=== PATIENT | female | born 1965 | race Caucasian/White ===

== ENCOUNTER 2017-12-11 15:05 | Emergency (ER) | payer OTHER ==
[~2017-12-11] VITALS: Ht 177.8 cm; Wt 83.9 kg
[~2017-12-11 15:05] MED LIST: AMOXICILLIN500 MG PO; DARVOCET N 1001 TAB PO; DAYPRO600 M1 PO; DIFLUCAN150 MG PO; ROBAXIN750 MG PO; ZOVIRAX800 MG PO
== END 2017-12-11 16:49 | disposition home or self-care (01) ==
LOC: ED 15:05
DX: S93.692A Other sprain of left foot, initial encounter (principal); F17.200 Nicotine dependence, unspecified, uncomplicated; Z98.890 Other specified postprocedural states; X50.1XXA Overexertion from prolonged static or awkward postures, initial encounter; Y93.01 Activity, walking, marching and hiking; Y92.828 Other wilderness area as the place of occurrence of the external cause; Y99.9 Unspecified external cause status

== ENCOUNTER → 2024-01-07 | Outpatient (CLI) | payer OTHER | END | disposition home or self-care (01) | LOC: MAMMO 12:20 | PROVIDERS: ATTEND Nurse Practitioner | DX: R92.1 Mammographic calcification found on diagnostic imaging of breast (principal) ==

== ENCOUNTER 2024-01-10 17:22 | Emergency (ER) | payer OTHER ==
[~2024-01-10] VITALS: Ht 180.3 cm; Wt 74.8 kg
[2024-01-10] MEDS ORDERED: NAPROXEN500 MG PO (17:34)
[2024-01-10] MEDS ORDERED: BUSPAR5 MG PO (17:34)
[2024-01-10] MEDS ORDERED: METHOCARBAMOL750 M1 PO (17:34)
[2024-01-10] MEDS ORDERED: ROSUVASTATIN CA20 MG PO (17:35)
[2024-01-10] MEDS ORDERED: FLUOXETINE HCL40 MG PO (17:35)
[2024-01-10] MEDS ORDERED: VITAMIN D350 MCG PO (17:35)
[2024-01-10] MEDS ORDERED: Acetaminophen/Oxycodone 5 MG/325 MG TABLET PO ONE (17:45)
[2024-01-10] MEDS ORDERED: Amoxicillin/Clavulanate Pota 875 MG TAB PO ONE (17:45)
[2024-01-10] MEDS ORDERED: HYDROCODONE-AC1 EAC1 PO (17:49)
[2024-01-10] MEDS ORDERED: AMOX-CLAV 875-1 EACH PO (17:49)
[2024-01-10] MEDS ORDERED: Tdap Vaccine 0.5 ML SYR (Adult Vaccine) IM ONE (18:00)
== END 2024-01-10 18:08 | disposition home or self-care (01) ==
LOC: ED 17:22
DX: S31.813A Puncture wound without foreign body of right buttock, initial encounter (principal); S51.851A Open bite of right forearm, initial encounter; S50.11XA Contusion of right forearm, initial encounter; Z90.49 Acquired absence of other specified parts of digestive tract; Z98.890 Other specified postprocedural states; W54.0XXA Bitten by dog, initial encounter; Y93.89 Activity, other specified; Y92.009 Unspecified place in unspecified non-institutional (private) residence as the place of occurrence of the external cause; Y99.8 Other external cause status